=== PATIENT | male | born 1995 | race Caucasian/White ===

== ENCOUNTER 2019-07-05 20:25 | Emergency (ER) | payer OTHER, SELFPAY ==
[2019-07-05 20:26] VITALS: BP 142/76; PULSE 72; RESP 16; TEMP 36.8; O2SAT 96; BMI 23.7
--- NOTE | 2019-07-05 20:48 | RAD_ITS ---
STUDY: X-RAY - LEFT ELBOW REASON FOR EXAM: Male, 24 years old. Trauma TECHNIQUE: 3 view(s) of the elbow. COMPARISON: None. FINDINGS: Normal visualized humerus, radius and ulna. Normal radiocapitellar and ulnotrochlear articulations. The soft tissue structures are unremarkable. RAD/Elbow min 3 Views IMPRESSION: Normal x-ray examination of the elbow. Electronically Signed: Chalino Sellers, at 21:22 EST Tel , Service support ,
--- NOTE | 2019-07-05 21:23 | CT_ITS ---
STUDY: CT BRAIN WITHOUT CONTRAST REASON FOR EXAM: Male, 24 years old. Fall. RADIATION DOSAGE (If Supplied By Facility): CTDIvol = ( 44.99 ) mGy, DLP = ( 829.85 ) mGycm TECHNIQUE: Transaxial CT imaging of the brain was performed without administration of intravenous contrast material. Individualized dose optimization techniques were used for this CT. COMPARISON: No relevant priors. FINDINGS: Normal soft tissue structures. Normal calvarium. Normal size ventricles and extra-axial spaces for the patient's age. Normal white matter tracts of the cerebral hemispheres. Normal basal ganglia and thalami. Normal brainstem. Normal cerebellum. There is no intracranial hemorrhage. There are no findings of an acute ischemic infarction. There is mucoperiosteal inflammatory disease of the paranasal sinuses consistent with mild chronic sinusitis. CT/Brain/Head without Contrast IMPRESSION: Normal unenhanced CT scan of the brain. Electronically Signed: Marlon Nieves MD at 21:40 EST , Service support ,
--- NOTE | 2019-07-05 21:29 | RAD_ITS ---
STUDY: X-RAY - LEFT HUMERUS REASON FOR EXAM: Male, 24 years old. fall off skateboard, patient complains of pain in elbow TECHNIQUE: 2 view(s) of the humerus. COMPARISON: None. FINDINGS: Normal visualized humerus. There is no demonstrated fracture or osseous destructive process. There is no demonstrated soft tissue abnormality. RAD/Humerus min 2 Views IMPRESSION: No acute osseous injury is evident involving the humerus. Electronically Signed: Rodney Rodriguez MD at 21:53 EST Tel , Service support ,
--- NOTE | 2019-07-05 21:35 | RAD_ITS ---
STUDY: X-RAY - LEFT RADIUS AND ULNA REASON FOR EXAM: Male, 24 years old. Fall off skateboard, pain TECHNIQUE: 2 view(s) of the forearm. COMPARISON: None. FINDINGS: There is no demonstrated soft tissue swelling. An acute fracture of the radial neck is noted. Normal visualized ulna. RAD/Forearm 2 Views IMPRESSION: An acute fracture of the radial neck is noted. Electronically Signed: Rodney Rodriguez MD at 21:51 EST Tel , Service support ,
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
[2019-07-05] MEDS: Diphth,Pertuss(Acell),Tet Vac 0.5 ML Vial IM (23:49)
== END 2019-07-05 23:23 | disposition home or self-care (01) ==
PROVIDERS: Emergency Provider Emergency Medicine
DX: S52.132A Displaced fracture of neck of left radius, initial encounter for closed fracture (principal); S09.90XA Unspecified injury of head, initial encounter; R55 Syncope and collapse; S01.112A Laceration without foreign body of left eyelid and periocular area, initial encounter; V00.138A Other skateboard accident, initial encounter; Y93.51 Activity, roller skating (inline) and skateboarding; Y92.9 Unspecified place or not applicable; Z23 Encounter for immunization; Z87.891 Personal history of nicotine dependence
CPT/HCPCS: 12011; 29105; 70450; 73060; 73080; 73090; 90715; 99285

== ENCOUNTER → 2019-07-24 13:34 | Outpatient (CLI) | payer OTHER, SELFPAY ==
[2019-07-05 20:26] VITALS: BMI 23.7
--- NOTE | 2019-07-24 13:35 | RAD_ITS ---
STUDY: X-RAY - LEFT ELBOW REASON FOR EXAM: Male, 24 years old. History of fracture, study requested for follow-up. TECHNIQUE: 3 view(s) of the elbow. COMPARISON: None. FINDINGS: Redemonstrated is subtle fracture radial head junction with the radial neck. Otherwise, visualized humerus, radius and ulna. Normal radiocapitellar and ulnotrochlear articulations. The soft tissue structures are unremarkable. RAD/Elbow min 3 Views IMPRESSION: Healing fracture of the radial head/neck region. Electronically Signed: Kenya Howard MD at 3:11 EST , Service support ,
== END ==
LOC: HPRAD 13:34
PROVIDERS: Referring Provider Physician Assistant; Visit Provider Physician Assistant
DX: S52.122A Displaced fracture of head of left radius, initial encounter for closed fracture (principal)
CPT/HCPCS: 73080